=== PATIENT | female | born 1960 | race Caucasian/White ===

== ENCOUNTER 2017-09-05 11:23 | Emergency (ER) | payer BC ==
[2017-09-05 12:21] VITALS: BP 118/72
[2017-09-05] MEDS ORDERED: Lidocaine 1% MPF* 2 ML VIAL INJ ONE (12:50)
--- NOTE | 2017-09-05 12:57 | UC ---
Eye Complaint HPI - HPI Summary HPI Summary: Pt presents with left ear pain progressive x 5 days. Pt was seen at an out of town and put on abx for a sinus infection. Pt reports significant discomfort to left ear. Pt states feels like "swollen" inside. No drainage. No relief with OTC meds. Pt has been taking abx but feels sx are worse. Pt reports pain feels like travels from ear down jaw. No fever, chills. no sore throat. no difficulty with swallowing. Pt's medications reviewed this visit - History of Current Complaint Chief Complaint: UCGeneralIllness Stated Complaint: SINUS/EAR COMPLAINT Time Seen by Provider: 09/05/17 12:32 Hx Obtained From: Patient Pain Intensity: 9 - Allergies/Home Medications Allergies/Adverse Reactions: Allergies Allergy/AdvReac Type Severity Reaction Status Date / Time No Known Allergies Allergy Verified 09/05/17 12:22 Home Medications: Home Medications Dulaglutide [Trulicity] 0.75 mg SQ WEEKLY 09/05/17 [History Confirmed 09/05/17] PMH/Surg Hx/FS Hx/Imm Hx Previously Healthy: Yes - Surgical History Surgical History: None - Family History Known Family History: Positive: Cardiac Disease, Hypertension, Diabetes, Other - CANCER - Social History Lives: With Family Alcohol Use: None Substance Use Type: None Smoking Status (MU): Former Smoker Type: Cigarettes Amount Used/How Often: 1/2 -1 PPD Length of Time of Smoking/Using Tobacco: 34 Years Have You Smoked in the Last Year: Yes When Did the Patient Quit Smoking/Using Tobacco: JUNE 06, 2015 Review of Systems Constitutional: Negative Eyes: Negative ENT: Ear Ache All Other Systems Reviewed And Are Negative: Yes Physical Exam - Summary Physical Exam Summary: Vital Signs Reviewed: Yes A+Ox3, appears uncomfortable Eyes: Conjunctiva Clear, llPERL, Eom intact and fu ENT: Hearing grossly normal right TM wnl. Left canal + edema of canal with erythema. No mastoid pain no TMJ sandra tubrinates mildly inflammed + PND no exudate, no erythema neck: supple no lymphadenopathy Respiratory: Positive: No respiratory distress, No accessory muscle use CTA throughout no w/r Cardiovascular: skin color reflect adequate perfusion RRR nl s1 s2 no m/r Musculoskeletal Exam: CORREA x 4 without difficulty Neurological: Positive: Alert, ambulatory without difficulty Psychological: Positive: Normal Response To Family Skin: Positive: no rash, no ecchymosis Triage Information Reviewed: Yes Vital Signs: Initial Vital Signs Temp 97.6 F 09/05/17 12:16 Pulse 85 09/05/17 12:16 Resp 18 09/05/17 12:16 BP 118/72 09/05/17 12:16 Pulse Ox 97 09/05/17 12:16 Eye Complaint Course/Dx - Course Course Of Treatment: Pt present with ongoing left ear pain. unable to visualize TM on left second to otits externa. will Rx drops. Instill a few lidocaine drops at with some improvement. continue oral abx. motrin/apap. return precautions - Differential Dx/Diagnosis Provider Diagnoses: left otitis externa Discharge - Sign-Out/Discharge Documenting (check all that apply): Patient Departure - Discharge Plan Condition: Stable Disposition: HOME Prescriptions: Ciproflox/Dexameth OTIC.SUSP* [Ciprodex OTIC.SUSP*] 4 drop .SEE ORDER BID #1 btl Moxifloxacin HCl [Avelox] 400 mg PO DAILY #10 tablet Patient Education Materials: Otitis Externa (ED), Ear Infection (ED) Referrals: No Primary Care Phys,NOPCP [Primary Care Provider] - Additional Instructions: - Apply ear drops to your left ear as instructed - 2 times a day for 10 days - stop taking Amoxicillin - start taking Avelox once daily as prescribed - avoid getting water or other fluids in your ear - Okay to alternate ibuprofen (advil, Motrin) 600mg and tylenol 1000mg every 3 hours as needed for pain. Take with food. - Contact your doctor to schedule a follow-up appointment. If your symptoms worsen, you develop fever, vomiting or other concerns it is recommended you go to the emergency department for further evaluation - Billing Disposition and Condition Condition: STABLE Disposition: Home
[2017-09-05] MEDS ORDERED: Acetaminophen TAB* 325 MG PO ONE (13:06)
== END 2017-09-05 13:16 | disposition home or self-care (01) ==
LOC: UCCORT 11:23
DX: H60.92 Unspecified otitis externa, left ear (principal); Z87.891 Personal history of nicotine dependence
CPT/HCPCS: 99212; A9270-GY; G0463